=== PATIENT | male | born 1945 | race Native Hawaiian/Other Pacific Islander ===

== ENCOUNTER 2016-04-30 09:13 | Outpatient (CLI) | payer OTHER, MEDICARE | END 2016-04-30 19:21 | disposition home or self-care (01) | LOC: US 09:13 | DX: Z01.818 Encounter for other preprocedural examination (principal) ==

== ENCOUNTER 2016-05-04 07:38 | Outpatient (CLI) | payer OTHER, MEDICARE ==
[2016-05-04 08:12] LABS: PLATELET COUNT 210 K/uL (142-355)
[2016-05-04 08:18] LABS: POTASSIUM 3.9 mmol/L (3.6-5.2); SODIUM 140 mmol/L (136-145)
== END 2016-05-05 01:57 | disposition home or self-care (01) ==
LOC: LABW 07:38
PROVIDERS: Internal Medicine
DX: Z00.00 Encounter for general adult medical examination without abnormal findings (principal); M10.9 Gout, unspecified; K21.9 Gastro-esophageal reflux disease without esophagitis; Z79.899 Other long term (current) drug therapy; Z51.81 Encounter for therapeutic drug level monitoring
CPT/HCPCS: 36415; 80053; 80061; 81000; 84154; 84439; 84443; 85027

== ENCOUNTER 2016-09-29 14:02 | Outpatient (CLI) | payer OTHER, MEDICARE | END 2016-09-29 15:05 | disposition home or self-care (01) | LOC: LAB 14:02 | DX: R19.7 Diarrhea, unspecified (principal) | CPT/HCPCS: 82272; 87015; 87045; 87205; 87324; 87328; 87329; 87449; 87899 ==

== ENCOUNTER 2016-11-03 09:19 | Outpatient (CLI) | payer OTHER, MEDICARE ==
[2016-11-03 09:38] LABS: PLATELET COUNT 186 K/uL (142-355)
[2016-11-03 09:55] LABS: POTASSIUM 3.8 mmol/L (3.6-5.2)
== END 2016-11-03 10:20 | disposition home or self-care (01) ==
LOC: LABW 09:19
PROVIDERS: Internal Medicine
DX: R19.7 Diarrhea, unspecified (principal)
CPT/HCPCS: 80053; 81000; 82272; 85027; 87015; 87045; 87077; 87185; 87186; 87205; 87206; 87324; 87328; 87329; 87449; 87507; 87899

== ENCOUNTER 2019-11-22 10:12 | Day surgery (SDC) | payer OTHER, MEDICARE ==
[2019-11-22 11:06] LABS: PLATELET COUNT 215 K/uL (142-355)
[2019-11-22 11:13] LABS: POTASSIUM 4.3 mmol/L (3.6-5.2)
== END 2019-11-22 12:30 | disposition home or self-care (01) ==
LOC: OR 10:12
PROVIDERS: Internal Medicine Gastroenterology
PROC: 0DJD8ZZ Inspection of Lower Intestinal Tract, Via Natural or Artificial Opening Endoscopic (ICD-10-PCS; principal; 2019-11-22)
DX: K64.8 Other hemorrhoids (principal); Z80.0 Family history of malignant neoplasm of digestive organs; Z12.11 Encounter for screening for malignant neoplasm of colon
CPT/HCPCS: 80053; 85027; J2704

== ENCOUNTER 2019-12-26 08:25 | Outpatient (CLI) | payer OTHER, MEDICARE ==
[2019-12-26 09:15] LABS: POTASSIUM 4.4 mmol/L (3.6-5.2)
[2019-12-26 09:18] LABS: PLATELET COUNT 235 K/uL (142-355)
== END 2019-12-26 22:24 | disposition home or self-care (01) ==
LOC: LABW 08:25
PROVIDERS: Internal Medicine
DX: I10 Essential (primary) hypertension (principal); K22.4 Dyskinesia of esophagus; Z12.5 Encounter for screening for malignant neoplasm of prostate; D64.9 Anemia, unspecified; E53.8 Deficiency of other specified B group vitamins
CPT/HCPCS: 36415; 80053; 80061; 81000; 82607; 82728; 82747; 83540; 83550; 84154; 84439; 84443; 84550; 85027

== ENCOUNTER 2020-02-02 10:42 | Outpatient (CLI) | payer OTHER, MEDICARE ==
[2020-02-02 10:56] LABS: PLATELET COUNT 191 K/uL (142-355)
== END 2020-02-02 19:32 | disposition home or self-care (01) ==
LOC: LABW 10:42
PROVIDERS: ATTEND Internal Medicine
DX: D64.89 Other specified anemias (principal); E03.8 Other specified hypothyroidism; I10 Essential (primary) hypertension
CPT/HCPCS: 36415; 80061; 82607; 84439; 84443; 85027

== ENCOUNTER 2020-12-18 12:12 | Outpatient (CLI) | payer OTHER, MEDICARE | END 2020-12-18 20:07 | disposition home or self-care (01) | LOC: LABW 12:12 | PROVIDERS: ATTEND Internal Medicine Gastroenterology | DX: K64.0 First degree hemorrhoids (principal) | CPT/HCPCS: 82272 ==

== ENCOUNTER 2021-01-06 10:46 | Outpatient (CLI) | payer OTHER, MEDICARE | END 2021-01-06 19:24 | disposition home or self-care (01) | LOC: MRI 10:46 | PROVIDERS: ATTEND Otolaryngology | DX: H91.8X3 Other specified hearing loss, bilateral (principal) | CPT/HCPCS: A9576 ==

== ENCOUNTER 2021-04-02 14:13 | Outpatient (CLI) | payer OTHER, MEDICARE | END 2021-04-02 19:00 | disposition home or self-care (01) | LOC: LAB 14:13 → LABW 14:13 | PROVIDERS: ATTEND Internal Medicine | DX: R53.83 Other fatigue (principal); Z11.52 Encounter for screening for COVID-19 | CPT/HCPCS: 87635; U0003 ==

== ENCOUNTER 2021-04-03 08:19 | Outpatient (CLI) | payer OTHER, MEDICARE ==
[2021-04-03 08:52] LABS: PLATELET COUNT 224 K/uL (142-355)
== END 2021-04-03 20:08 | disposition home or self-care (01) ==
LOC: LABW 08:19
PROVIDERS: ATTEND Internal Medicine
DX: E03.8 Other specified hypothyroidism (principal); D64.89 Other specified anemias; I10 Essential (primary) hypertension; E79.0 Hyperuricemia without signs of inflammatory arthritis and tophaceous disease
CPT/HCPCS: 36415; 80053; 82607; 82728; 82747; 83540; 84439; 84443; 84550; 85027

== ENCOUNTER 2021-05-26 07:53 | Outpatient (CLI) | payer OTHER, MEDICARE | END 2021-05-26 19:03 | disposition home or self-care (01) | LOC: US 07:53 → RESP 09:00 → US 19:03 | PROVIDERS: ATTEND Specialist | DX: R55 Syncope and collapse (principal) ==

== ENCOUNTER 2022-02-05 11:10 | Outpatient (CLI) | payer OTHER, MEDICARE | END 2022-02-05 19:04 | disposition home or self-care (01) | LOC: LABW 11:10 | PROVIDERS: ATTEND Internal Medicine Gastroenterology | DX: K64.0 First degree hemorrhoids (principal) | CPT/HCPCS: 82272 ==

== ENCOUNTER 2022-08-31 12:45 | Outpatient (CLI) | payer OTHER, MEDICARE ==
[2022-08-31 13:41] LABS: PLATELET COUNT 240 K/uL (142-355)
[2022-08-31 14:00] LABS: POTASSIUM 3.9 mmol/L (3.6-5.2)
== END 2022-08-31 19:22 | disposition home or self-care (01) ==
LOC: LAB 12:45
PROVIDERS: ATTEND Internal Medicine
DX: Z00.00 Encounter for general adult medical examination without abnormal findings (principal); Z12.5 Encounter for screening for malignant neoplasm of prostate; D64.89 Other specified anemias; Z79.899 Other long term (current) drug therapy
CPT/HCPCS: 80053; 80061; 81002; 82607; 82746; 84153; 84439; 84443; 84550; 85027